=== PATIENT | male | born 1940 | race Caucasian/White ===

== ENCOUNTER 2023-10-13 08:06 | Day surgery (SDC) | payer MEDICARE, OTHER, SELFPAY ==
[2023-10-13] VITALS (13 sets, daily range): BP systolic 109–149; BP diastolic 60–72; BMI 26.0
[2023-10-13] MEDS: NSS 232 ML IV (09:40)
--- NOTE | 2023-10-13 11:02 | CONSULT.CT ---
Consultation
-
Date/Time Consultation Requested: 10/13
Date/Time Consultation Performed: 10/13 @ 1116
Requesting Provider: Dr Skinny Hines
Performing Provider: Mirella Angel for Dr Leslie
Reason for Consultation: CABG evaluation
Patient History
Physicians
Family Physician: Dr Diallo
Outpatient Lithography Contact Worker: Dr. Hines
History of Present Illness
83-year-old male electively admitted for left heart cath 10/13/23 due to abnormal stress echo and report of chest pressure with shortness of breath both during activity and occasionally at rest for the past few months. Currently denies
chest pressure, shortness of breath, or lower extremity edema. Able to perform ADLs independently. Ambulates without assistive devices
Left heart cath (Dr. Hines):
Left Main: mild distal tapering.
Left Anterior Descending: smooth 70% stenosis proximally just before the first septal javascript engineer with large saccular poststenotic dilatation/aneurysmal segment.� The diagonal branch comes off of the aneurysmal segment so it is impossible to see the
takeoff clearly.� There appears to be some degree of ostial disease however the distal vessel has SUKI-3 flow and appears to be a good target.� The mid LAD beyond that has moderate luminal irregularities and the distal LAD appears to be a good
surgical target.
Left Circumflex: occluded in the midportion.� A large distal OM fills via left to left collaterals and also appears to be a good surgical target.
Right Coronary: Proximal total occlusion.� Right-sided PDA fills via faint right and left to right collaterals and appears to be a reasonable surgical target.
Past Medical History
Past Medical History: Other
Hypertension
History of cholecystitis with acute pancreatitis and septic shock with prolonged hospitalization (trach/PEG) 2003
?hx atrial fibrillation (EKG 09/2023 SB)
History of pulmonary embolism s/p IVC filter removed 4 yrs ago
Chronic kidney disease stage III
renal cell cancer (?left) s/p FRA 2003
Hearing loss with bilateral hearing aids
Past Surgical History
Past Surgical History: Other
Total arthroscopy right shoulder
History of open reduction internal fixation of right ankle
Cholecystectomy
Appendectomy
Bilateral cataract extraction with intraocular lens implant
Dental History
N/A
Family History
Mother: at Age
Father: at Age
Social History
Alcohol: Occasional (holidays)
Drug: None
Tobacco: Former Smoker (1979)
Personal:
Living: With Spouse
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
Allergies
Allergy/AdvReac Type Severity Reaction Status Date / Time
iodine Allergy Rash Verified 10/13/23 09:41
Home Medications
Medication Instructions Recorded Confirmed Type
amlodipine 10 mg tablet 10 mg PO DAILY 10/13/23 10/13/23 History
apixaban 2.5 mg tablet (Eliquis) 2.5 mg PO BID 10/13/23 10/13/23 History
aspirin 81 mg tablet,delayed 81 mg PO DAILY 10/13/23 10/13/23 History
release
atorvastatin 40 mg tablet 40 mg PO DAILY 10/13/23 10/13/23 History
metoprolol succinate 25 mg 25 mg PO DAILY 10/13/23 10/13/23 History
tablet,extended release 24 hr
nitroglycerin 0.4 mg sublingual 0.4 mg sublingual Q5M PRN Chest 10/13/23 10/13/23 History
tablet pain
omeprazole 20 mg capsule,delayed 20 mg PO DAILY 10/13/23 10/13/23 History
release
sildenafil 100 mg tablet 100 mg PO DAILY PRN ED 10/13/23 10/13/23 History
Review of Systems
-
History Source: Patient
General: Reports No Symptoms
HEENT: Reports No Symptoms
Respiratory: Reports No Symptoms
Cardiac: Reports No Symptoms
Abdomen/GI: Reports No Symptoms
: Reports No Symptoms
Musculoskeletal: Reports No Symptoms
Skin: Reports No Symptoms
Neurological: Reports No Symptoms
Vascular: Reports No Symptoms
Physical Exam
Vital Signs
Temp 97.7 F 10/13/23 09:56
Temp route: Oral 10/13/23 09:56
Pulse 58 10/13/23 10:41
Resp Rate 15 10/13/23 10:41
Blood pressure 132/67 10/13/23 10:41
Blood pressure extremity used: Left upper arm 10/13/23 10:41
Position: Sitting 10/13/23 10:41
SaO2 95 10/13/23 10:41
Oxygen Mode of Delivery Room air 10/13/23 10:41
Can the patient verbally communicate their pain? Yes 10/13/23 10:41
Actual Weight 77.4 kg 10/13/23 09:17
Body Mass Index (BMI) 26.0 10/13/23 09:17
Exam
General: Well Developed, Well Nourished and Comfortable
HEENT: Normocephalic, Anicteric, Moist Mucous Membranes and Other (B/L hearing aids)
Respiratory: Clear
Cardiac: S1/S2, Regular Rhythm and Irregular Rhythm
GI: Soft, Non Tender, Non Distended and Normal Bowel Sounds
Rectal: Deferred by Provider
Skin: Warm and Dry
Neuro: AO x 3, No Motor Deficits and Nonfocal/Grossly Intact
Extremities: Pulses (+2/4 B/L DP pulses)
Lymph: No Lymphadenopathy
Psych: Calm
Assessment / Plan
-
83 year old male with triple vessel coronary disease
- imaging reviewed by Dr. Leslie
- office appointment scheduled 10/18 @ 1130
- CABG targets: dLAD, Diag, dOM and RPDA
- will need to stop Eliquis 3 days prior to surgery
Data Reviewed
-
EKG: Report Reviewed by me and Discussed with Physician
.Net Programmer: Report Reviewed by me and Discussed with Physician
Echo: Report Reviewed by me and Discussed with Physician
Labs: Labs Reviewed by me and Discussed with Physician
--- NOTE | 2023-10-13 11:13 | ITS.CL.CATH ---
[facility] - Catheterization
Cardiac Catheterization
Procedure Report:
LEFT HEART CATHETERIZATION
Date of Procedure: 10/13/2023
Procedures performed:
1: Coronary angiography
2: Left ventriculography
Primary Care Physician: Dr. Jarod Diallo
Primary Brush Washer: Dr. Bryon Velazquez
INDICATION: The patient is an 83-year-old man who presents with crescendo angina. Echocardiography showed preserved LVEF with ejection fraction of 50 to 55% and inferolateral hypokinesis. Nuclear perfusion imaging performed on September 29 showed
inferior scar with extensive lateral ischemia.
ACCESS: The patient was prepped and draped in usual sterile fashion. A 6 Latvian sheath was placed in the right radial artery using the Seldinger over the wire technique.
HEMODYNAMIC FINDINGS (mmHg):
LV(s/d,EDP): 138/10, 20
Ao(s/d,m): 138/57, 89
ANGIOGRAPHIC FINDINGS:
Single-plane Left Ventriculography in [place] Projection: Moderate diaphragmatic hypokinesis. Mild focal high anterolateral hypokinesis. Overall preserved LV systolic function with a visually estimated ejection fraction of 50%. No significant mitral
regurgitation.
Coronary Angiography:
Dominance: Right
Left Main: Medium caliber with mild distal tapering.
Left Anterior Descending: The left anterior descending artery is a medium caliber vessel that has a smooth 70% stenosis proximally just before the first septal payment collector. There is a large saccular poststenotic dilatation/aneurysmal segment. The
diagonal branch comes off of the aneurysmal segment so it is impossible to see the takeoff clearly. There appears to be some degree of ostial disease however the distal vessel has SUKI-3 flow and appears to be a good target. The mid LAD beyond
that has moderate luminal irregularities and the distal LAD appears to be a good surgical target.
Left Circumflex: The left circumflex is occluded in the midportion. A large distal OM fills via left to left collaterals and also appears to be a good surgical target.
Right Coronary: Proximal total occlusion. Right-sided PDA fills via faint right and left to right collaterals and appears to be a reasonable surgical target.
Fluoroscopy Time (min): 2
Radiation Dose (mGy): 302
DAP (Gy.cm2): 24
Closure device: None. A TR band was applied for hemostasis at the right wrist.
Complications: None.
ASSESSMENT:
1: Severe obstructive multivessel coronary disease with chronic total occlusion of the right and circumflex with targets in the vascular distribution. There also appears to be obstructive disease jeopardizing the LAD and large diagonal with good
surgical targets distally.
2: Preserved LV systolic function with inferior wall motion abnormality and no significant mitral regurgitation.
CONCLUSIONS and RECOMMENDATIONS:
1: CT surgical evaluation for CABG.
Mayelin Hines M.D.
Copy to: Dr. Jarod Diallo
[2023-10-13] MEDS: NSS 1000 IV (11:50)
== END 2023-10-13 13:45 | disposition home or self-care (01) ==
LOC: CATH 08:06
PROVIDERS: ATTENDING PHYSICIAN Internal Medicine Interventional Cardiology; CONSULT PHYSICIAN Thoracic Surgery (Cardiothoracic Vascular Surgery); PRIMARYCARE PHYSICIAN Family Medicine; REFERRING PHYSICIAN Internal Medicine Cardiovascular Disease
DX: I25.110 Atherosclerotic heart disease of native coronary artery with unstable angina pectoris (principal); I25.82 Chronic total occlusion of coronary artery; I12.9 Hypertensive chronic kidney disease with stage 1 through stage 4 chronic kidney disease, or unspecified chronic kidney disease; N18.30 Chronic kidney disease, stage 3 unspecified; I48.91 Unspecified atrial fibrillation; R06.02 Shortness of breath; R07.9 Chest pain, unspecified; Z87.891 Personal history of nicotine dependence; Z79.01 Long term (current) use of anticoagulants; Z79.82 Long term (current) use of aspirin
CPT/HCPCS: 93458; C1894; Q9967

== ENCOUNTER 2025-06-11 09:30 | Emergency (ER) | payer MEDICARE, OTHER, SELFPAY ==
[2025-06-11 09:35] VITALS: BP 137/80
--- NOTE | 2025-06-11 11:11 | ED.GENMED ---
History of Present Illness
General
Chief Complaint: Musculo-Skeletal Complaint
Source: patient
Exam Limitations: none
Time Seen by Provider: 06/11/25 11:01
Nursing documentation reviewed up to this point in time: agreed with
History of Present Illness
History of Present Illness:
Patient is an 85-year-old male with history hypertension, CAD s/p triple bypass CABG on Eliquis who presents to the emergency department with pain in his left great toe. Patient reports gradually worsening pain at left first MTP joint over the past
2 weeks. Pain is exacerbated with long periods of walking and wearing tight fitting shoes. Symptoms seem worse during the nighttime hours. He occasionally has some erythema and warmth of the affected however denies any obvious swelling. He
denies any systemic symptoms including fever or chills. No pain or swelling of his calf or foot.
He denies any known injury or trauma.
Patient is anticoagulated on Eliquis and compliant with medication.
He does report history of gout in right first toe a few years ago.
Past History
Past History
ED Past Medical History: CAD, HTN and Other (Agree with documented past medical history)
ED Past Surgical History: Appendectomy, Cholecystectomy and Orthopedic
Social History
Personal: Single
Living: with family
Review of Systems
Review of Systems
Allergies reviewed?: Yes
All Other Systems: ROS reviewed and negative except as documented in HPI and ROS
Phy Exam
Physical Exam
Physical Exam:
Vitals: Mildly hypertensive, otherwise vital signs are stable. Afebrile
General: Patient is well appearing, no acute distress
Skin: Warm and dry, no rashes or lesions. No obvious erythema or warmth of left great toe.
Head: Normocephalic, atraumatic
Throat: Protecting airway
Neck: Normal ROM, no cervical spine tenderness
Cardiac: Regular rate
Pulm: No apparent respiratory distress
Abdomen: Nondistended
Extremities: Hallux valgus deformity of left great toe. No obvious erythema or warmth. Mild tenderness at left first MTP. Normal sensation and capillary refill. No tenderness of left midfoot, hindfoot or tenderness of calf. 2+ palpable left DP
pulse.
Neuro: Grossly intact
Psychiatric: Normal affect.
Course
Orders/Labs/Results
Orders:
Orders
06/11/25 11:09
Toes 2 Views, Left CR [CR Toe(s) Min 2 Vw Left] Urgent
Comment:
Reason For Exam: pain at 1st MTP joint left
06/11/25 12:31
Prednisone [Deltasone] 40 mg PO NOW STA
Vital Signs
Initial and Last Documented VS:
Initial Vital Signs
Temp Pulse Resp BP Pulse Ox
97.6 F 57 16 137/80 97
06/11/25 09:35 06/11/25 09:35 06/11/25 09:35 06/11/25 09:35 06/11/25 09:35
Last Documented Vital Signs
Temp Pulse Resp BP Pulse Ox
97.6 F 57 16 137/80 97
06/11/25 09:35 06/11/25 09:35 06/11/25 12:45 06/11/25 09:35 06/11/25 11:12
MDM/Problems Addressed
Differential Diagnosis Includes:
Not limited to: Osteoarthritis, inflammatory arthritis including gout, toe sprain, toe fracture, etc.
MDM/Problems Addressed:
85-year-old male with history as documented presenting with pain of left great toe progressively worsening over the past few weeks. Pain exacerbated at night, with ambulation and tight fitting shoes. No associated fever, chills, notable redness,
warmth, or swelling of affected toe. No known trauma. Patient does report history of gout in right foot and felt similar. Patient mildly hypertensive otherwise with stable vital signs on arrival. He is afebrile. Physical exam as above. Hallux
deformity of left great toe without any erythema, warmth at first MTP joint. Very mild tenderness at left first MTP joint. No other bony tenderness of left foot. LLE neurovascularly intact.
Differential includes osteoarthritis, inflammatory arthritis, traumatic injury. Do not suspect infectious process or septic arthritis. Will check x-ray of left great toe and reassess. Patient declines any analgesia
Update: X-ray without acute findings. Overall suspicion is likely osteoarthritis flare however it is possible there is a component of inflammatory arthritis such as gout. Given patient is anticoagulated on Eliquis�will avoid all NSAIDs. Will give
patient short course of steroids and advised Tylenol. Offered hard soled/cast shoe however patient declines. Supportive care discussed at home. Information given for podiatry. Return precautions discussed.
Chronic conditions affecting care:
CAD s/p CABG on eliquis
*Radiology
Radiology exam reviewed: preliminary read by ED provider (Toe x-ray reviewed by me-no acute fracture ) and radiology read reviewed
*Pulse Oximetry
SaO2: 97
Oxygen Mode of Delivery: Room air
Patient hypoxic: no
*EKG
Interpreted by ED Provider?: NA
*Overnight Cashier Interpretation
Rate: Overnight Cashier- N/A
*Critical Care Note
Total Time (30-74mins, 75-104mins- exclusive of procedures): Not Applicable
ED Attending Note
-
Portions of this chart may have been created with voice recognition software.� Occasional wrong word or��sound alike� substitutions may have occurred due to the inherent limitations of voice recognition software.
Discharge Plan
Departure
Patient Disposition: Home (Routine Discharge)
Date of Disposition: 06/11/25
Time of Disposition: 12:33
Patient with high blood pressure during this ER visit?: Yes
Condition: Good
Discharge Problem:
Gouty arthritis of left great toe
Instructions: Gout - ED (DC), BLOOD PRESSURE
Prescriptions:
New
prednisone 20 mg tablet
40 mg PO DAILY 4 Days Qty: 8 0RF
No Action
atorvastatin 40 mg Tablet
40 mg PO DAILY
aspirin 81 mg Tablet,Delayed Release (Dr/Ec)
81 mg PO DAILY
sildenafil 100 mg Tablet
100 mg PO DAILY PRN (Reason: ED)
amlodipine 10 mg Tablet
10 mg PO DAILY
nitroglycerin 0.4 mg Tablet, Sublingual
0.4 mg SUBLINGUAL Q5M PRN (Reason: Chest pain)
omeprazole 20 mg Capsule,Delayed Release(Dr/Ec)
20 mg PO DAILY
metoprolol succinate 25 mg Tablet Extended Release 24 Hr
25 mg PO DAILY
Eliquis 2.5 mg Tablet
2.5 mg PO BID
Referrals:
UNKNOWN - PT DOES,NOT KNOW [Family Provider]
Esthela Denis DPM [Specified Professional Personl, Podiatry]
Activity Restrictions/Additional Instructions:
RETURN TO THE EMERGENCY DEPARTMENT WITH ANY INTRACTABLE PAIN, NUMBNESS/TINGLING IN LEFT FOOT, SWELLING OR PAIN IN HER LEFT CALF, FEVER OR CHILLS, SIGNIFICANT REDNESS OR SWELLING OF LEFT FOOT/TOE, WORSENING IN CURRENT SYMPTOMS, OR ANY OTHER CONCERNS
- A prescription for prednisone has been sent to the pharmacy. You were given your first dose in the emergency department. You can resume medication tomorrow and take for the next 4 days.
- You should take Tylenol as needed for pain. Continue to ice, elevate your left foot/toe. Please wear hard soled shoes
- As discussed�given that you are on Eliquis�you should avoid any NSAIDs including ibuprofen, Motrin, Advil, Aleve, etc.
- Follow-up with primary care and podiatry as needed for further evaluation/management and to ensure that your symptoms improve
Monitor your symptoms closely and return to the emergency department with any acute worsening/new symptoms or any other concerns
Interventions
Interventions:
*Risk Screen - Suicide Last Done: 06/11/25 09:38
*General Assessment Last Done: 06/11/25 12:26
*Neglect/Abuse Screening Last Done: 06/11/25 12:26
*ED- Fall Risk Assessment Last Done: 06/11/25 12:26
*Nursing Disposition Last Done: 06/11/25 12:45
ED-Musculoskeletal Assessment Last Done: 06/11/25 12:26
Discharge Date and Time
Discharge Date/Time: 06/11/25 12:46
Print Language: PORTUGUESE
[2025-06-11] MEDS: DELTASONE 40 MG PO (12:37)
== END 2025-06-11 12:46 | disposition home or self-care (01) ==
LOC: EMR 09:30
PROVIDERS: EMERGENCY PHYSICIAN Emergency Medicine
DX: M10.072 Idiopathic gout, left ankle and foot (principal); I25.10 Atherosclerotic heart disease of native coronary artery without angina pectoris; I10 Essential (primary) hypertension; Z95.1 Presence of aortocoronary bypass graft; Z79.01 Long term (current) use of anticoagulants; Z90.49 Acquired absence of other specified parts of digestive tract
CPT/HCPCS: 99283; 73660